=== PATIENT | female | born 1985 | race Caucasian/White ===

== ENCOUNTER 2017-11-30 23:17 | Emergency (ER) | payer SELFPAY ==
[~2017-11-30] VITALS: Ht 157.5 cm; Wt 68.0 kg
[~2017-11-30 23:17] MED LIST: LEVO50TA8 PO
--- NOTE | 2017-12-01 00:30 | NUR ---
Pt c/o back and rt hip pain r/t fall
[2017-12-01] MEDS ORDERED: KETOROLAC TROMETHAMINE 30 MG INJ IM ONE (00:45)
[2017-12-01] MEDS ORDERED: KETOROLAC TROMETHAMINE 30 MG INJ ONE (01:08)
[2017-12-01] MEDS ORDERED: HYDROCODONE/APAP 5-325MG TABLET ONE (02:09)
[2017-12-01 02:30] VITALS: BP 107/55
== END 2017-12-01 02:30 | disposition home or self-care (01) ==
LOC: ER 23:17
DX: S33.9XXA Sprain of unspecified parts of lumbar spine and pelvis, initial encounter (principal); S49.91XA Unspecified injury of right shoulder and upper arm, initial encounter; S89.91XA Unspecified injury of right lower leg, initial encounter; M54.41 Lumbago with sciatica, right side; E03.9 Hypothyroidism, unspecified; W01.0XXA Fall on same level from slipping, tripping and stumbling without subsequent striking against object, initial encounter; Y92.89 Other specified places as the place of occurrence of the external cause; Y93.89 Activity, other specified; Y99.8 Other external cause status
CPT/HCPCS: 73030; A4663; J1885